=== PATIENT | female | born 1995 | race Caucasian/White ===

== ENCOUNTER → 2024-01-05 | Outpatient (CLI) | payer OTHER | LOC: M RAD 10:13 | PROVIDERS: ATTEND Internal Medicine Gastroenterology | DX: R11.2 Nausea with vomiting, unspecified (principal) ==

== ENCOUNTER 2024-05-21 08:51 | Emergency (ER) | payer BC, OTHER ==
[~2024-05-21] VITALS: Ht 147.3 cm; Wt 52.3 kg
[2024-05-21] MEDS ORDERED: ONDANSETRON 4MG 2ML VIAL As Ordered ONE (09:01)
[2024-05-21] MEDS ORDERED: MULTTAB20 PO (09:06)
[2024-05-21] MEDS: HALOPERIDOL LACTATE 5MG/ML VIAL IV ONE (09:28)
[2024-05-21] MEDS: diphenhydrAMINE 50MG/ML VIAL IV ONE (09:28)
[2024-05-21 10:17] LABS: AMPHETAMINES LEVEL URINE NEGATIVE (NEGATIVE); BARBITURATES URINE NEGATIVE (NEGATIVE); BENZODIAZEPINES URINE NEGATIVE (NEGATIVE); COCAINE METABOLITE URINE NEGATIVE (NEGATIVE); METHADONE URINE NEGATIVE (NEGATIVE); OPIATES URINE NEGATIVE (NEGATIVE); PHENCYCLIDINE URINE NEGATIVE (NEGATIVE)
[2024-05-21 10:19] LABS: CANNABINOIDS URINE POSITIVE (NEGATIVE)
[2024-05-21] MEDS ORDERED: ONDA-282 PO (11:40)
[2024-05-21 11:50] VITALS: BP 98/56; TEMP 99.4; O2SAT 98
== END 2024-05-21 11:56 | disposition home or self-care (01) ==
LOC: M ED 08:51 → EDBD 08:51 → M ED 11:56
DX: O21.1 Hyperemesis gravidarum with metabolic disturbance (principal); O99.322 Drug use complicating pregnancy, second trimester; F43.10 Post-traumatic stress disorder, unspecified; F32.A Depression, unspecified; F12.10 Cannabis abuse, uncomplicated; Z87.42 Personal history of other diseases of the female genital tract; Z79.83 Long term (current) use of bisphosphonates; Z79.899 Other long term (current) drug therapy; Z3A.18 18 weeks gestation of pregnancy
CPT/HCPCS: 80307; 96374; 99284; J1200; J1630

== ENCOUNTER 2024-10-06 15:30 | Outpatient (CLI) | payer BC ==
[~2024-10-06] VITALS: Ht 147.3 cm; Wt 51.8 kg
[~2024-10-06 15:30] MED LIST: MULTTAB20 PO; ONDA-282 PO
[2024-10-06 15:51] VITALS: BP 115/58
[2024-10-06] MEDS ORDERED: ACET-897 PO (15:55)
[2024-10-06 16:48] VITALS: BP 114/67
== END 2024-10-06 16:50 | disposition home or self-care (01) ==
LOC: M LDO 15:30
PROVIDERS: ATTEND Specialist
DX: O26.893 Other specified pregnancy related conditions, third trimester (principal); O47.1 False labor at or after 37 completed weeks of gestation; N89.8 Other specified noninflammatory disorders of vagina; Z3A.38 38 weeks gestation of pregnancy
CPT/HCPCS: 59025; G0463